=== PATIENT | female | born 1940 | race Caucasian/White ===

== ENCOUNTER → 2017-09-03 09:26 | Outpatient (CLI) | payer MEDICARE ==
[2013-05-06 09:45] VITALS: BMI 30.9
[~2017-09-03 09:26] MED LIST: BAYER CHEWABLE81 MG PO; LEVOTHROID25 MCG PO; MAXZIDE-25 MG T1 TAB PO; NORVASC10 MG PO; PLAVIX75 MG PO; PRILOSEC20 MG PO; ZOCOR20 MG PO
== END | disposition home or self-care (01) ==
LOC: D.MRI 09:26
DX: M53.86 Other specified dorsopathies, lumbar region (principal)

== ENCOUNTER → 2018-05-07 09:37 | Outpatient (CLI) | payer MEDICARE ==
[2013-05-06 09:45] VITALS: BMI 30.9
== END | disposition home or self-care (01) ==
LOC: D.US 09:37
DX: R94.5 Abnormal results of liver function studies (principal)

== ENCOUNTER → 2018-11-19 09:56 | Outpatient (CLI) | payer MEDICARE ==
[2013-05-06 09:45] VITALS: BMI 30.9
== END | disposition home or self-care (01) ==
LOC: D.HCCARDIO 09:56
PROVIDERS: ATTEND Internal Medicine Cardiovascular Disease
DX: I25.10 Atherosclerotic heart disease of native coronary artery without angina pectoris (principal)